=== PATIENT | female | born 1995 | race Caucasian/White ===

== ENCOUNTER 2018-06-17 11:10 | Observation (INO) | payer OTHER ==
[2018-06-17] MEDS: SOD CHLORIDE 0.9% 1,000 ML IV ×3 (13:00→20:42)
[2018-06-17] MEDS: MIDAZOLAM 1 MG/ML 2 ML INJ ×2 (13:50→14:03)
[2018-06-17] MEDS: LIDOCAINE 1% (MPF) 5 ML VIAL ×2 (13:50→14:00)
[2018-06-17] MEDS: FENTAnyl 50 MCG/ML VIAL ×2 (13:55→14:03)
[2018-06-17] MEDS: SOD CHLORIDE 0.9% 500 ML IV (15:40)
[2018-06-17 16:11] LABS: HEMATOCRIT 41.1 % (37.0-47.0); HEMOGLOBIN 13.6 g/dl (12.0-16.0)
[2018-06-17 18:09] LABS: PROTIME 13.3 Sec (11.9-14.9)
[2018-06-17 18:10] LABS: PARTIAL THROMBOPLASTIN TIME 26.9 Sec (25.0-35.0)
[2018-06-17 18:14] LABS: ANION GAP 11 (8-16); BLOOD UREA NITROGEN 12 mg/dl (7-20); CARBON DIOXIDE 24 mmol/L (21-31); CHLORIDE 109 mmol/L (97-110); CREATININE 0.68 mg/dl (0.44-1.00); GLUCOSE 90 mg/dl (70-220); SODIUM 140 mmol/L (135-144)
[2018-06-17] MEDS ORDERED: MAGNESIUM HYDROXIDE 30ML CUP PO (19:30)
[2018-06-17] MEDS ORDERED: ACETAMINOPHEN 325 MG TAB PO (19:30)
[2018-06-17] MEDS ORDERED: DOCUSATE SODIUM 100 MG CAP PO (19:30)
[2018-06-17] MEDS ORDERED: ONDANSETRON 4 MG INJ IV (19:30)
[2018-06-17] MEDS ORDERED: morphine LIQ (10 MG/5 ML) CUP PO (19:30)
[2018-06-17] MEDS ORDERED: ZOLPIDEM 5 MG TAB PO (19:30)
[2018-06-17] MEDS ORDERED: HYDROCODONE/APAP (5/325) TAB PO (19:30)
[2018-06-17] MEDS ORDERED: NACL 0.9% 3 ML SYG IV (19:30)
[2018-06-17] MEDS: HYDROCODONE/APAP (5/325) TAB PO (23:52)
[2018-06-18 06:14] LABS: ADD MAN DIFF? NO
[2018-06-18] MEDS: SOD CHLORIDE 0.9% 1,000 ML IV (06:25)
[2018-06-18 06:30] LABS: BASOPHILS % 0.4 % (0.0-2.0); EOSINOPHILS # 0.1 10^3/ul (0.0-0.5); HEMATOCRIT 36.1 % (37.0-47.0); HEMOGLOBIN 11.7 g/dl (12.0-16.0); LYMPHOCYTES # 3.2 10^3/ul (0.8-2.9); LYMPHOCYTES % 32.5 % (15.0-51.0); MEAN CORPUSCULAR HEMOGLOBIN 30.1 pg (29.0-33.0); MEAN CORPUSCULAR HGB CONC 32.4 g/dl (32.0-37.0); MEAN CORPUSCULAR VOLUME 92.8 fl (82.0-101.0); MEAN PLATELET VOLUME 9.9 fl (7.4-10.4); MONOCYTE # 0.7 10^3/ul (0.3-0.9); MONOCYTES % 6.5 % (0.0-11.0); NEUTROPHIL # 5.9 10^3/ul (1.6-7.5); NEUTROPHILS % 59.4 % (39.0-77.0); PLATELET COUNT 193 10^3/UL (140-415); RED BLOOD COUNT 3.89 10^6/ul (4.20-5.40); RED CELL DISTRIBUTION WIDTH 13.2 % (11.5-14.5)
[2018-06-18 06:30] LABS: WHITE BLOOD COUNT 9.9 10^3/ul (4.8-10.8)
[2018-06-18 06:38] LABS: HEMOGLOBIN A1C 5.1 % (0-5.9)
[2018-06-18 07:03] LABS: ANION GAP 11 (8-16); BLOOD UREA NITROGEN 10 mg/dl (7-20); CALCIUM 8.4 mg/dl (8.4-10.2); CARBON DIOXIDE 25 mmol/L (21-31); CHLORIDE 112 mmol/L (97-110); CREATININE 0.69 mg/dl (0.44-1.00); GLUCOSE 102 mg/dl (70-220); POTASSIUM 4.2 mmol/L (3.5-5.1); SODIUM 144 mmol/L (135-144)
== END 2018-06-18 13:50 | disposition home or self-care (01) ==
LOC: SDS 11:10 → TEL 18:27
DX: R55 Syncope and collapse (principal); R42 Dizziness and giddiness
CPT/HCPCS: 50200; 77012; 80048; 82962; 83036; 83735; 84100; 85014; 85018; 85025; 85610; 85730; G0378

== ENCOUNTER → 2019-01-17 | Outpatient (CLI) | payer OTHER | END | disposition home or self-care (01) | LOC: EEG 12:52 | DX: R55 Syncope and collapse (principal) | CPT/HCPCS: 95819 ==